=== PATIENT | female | born 2000 | race Hispanic/Latino ===

== ENCOUNTER 2022-08-06 20:14 | Day surgery (SDC) | payer OTHER ==
[2022-08-06] MEDS ORDERED: hydrALAZINE 20 MG/ML VIAL SLOW IVP PRN (21:21)
[2022-08-06 21:54] VITALS: BMI 33.3
== END 2022-08-06 21:45 | disposition home or self-care (01) ==
LOC: CSHLD/OP 20:14
PROVIDERS: ATTEND Obstetrics & Gynecology
DX: O47.1 False labor at or after 37 completed weeks of gestation (principal); Z3A.39 39 weeks gestation of pregnancy; Z79.899 Other long term (current) drug therapy
CPT/HCPCS: 99282

== ENCOUNTER 2022-08-10 19:30 | Inpatient (IN) | payer OTHER ==
[~2022-08-10 19:30] MED LIST: Bupivacaine 0.25% HCL 30 ML VIAL ONE
[2022-08-10] MEDS ORDERED: hydrALAZINE 20 MG/ML VIAL SLOW IVP PRN (20:34)
[2022-08-10] MEDS ORDERED: Methylergonovine 0.2 MG/ML VIAL IM PRN (20:34)
[2022-08-10] MEDS ORDERED: Butorphanol Tartrate 1 MG/ML VIAL SLOW IVP PRN (20:34)
[2022-08-10] MEDS ORDERED: Ibuprofen 800 MG TAB PO PRN (20:34)
[2022-08-10] MEDS ORDERED: Diphenoxylate HCl/Atropine Tablet PO PRN ×2 (20:34)
[2022-08-10] MEDS ORDERED: Promethazine HCl 25 MG/ML VIAL IM PRN (20:34)
[2022-08-10] MEDS ORDERED: Carboprost 250 MCG/ML AMP IM PRN (20:34)
[2022-08-10] MEDS ORDERED: Lidocaine 1% (PF) 30 ML VIAL SC PRN (20:34)
[2022-08-10] MEDS ORDERED: Misoprostol 200 MCG TAB PR PRN (20:34)
[2022-08-10] MEDS ORDERED: HYDROcodone/Acetaminophen 5/325 mg Tablet PO PRN ×2 (20:34)
[2022-08-10] MEDS ORDERED: Acetaminophen 500 MG TAB PO PRN (20:34)
[2022-08-10] MEDS ORDERED: Ondansetron PF 4 MG/2 ML Vial IVP PRN (20:34)
[2022-08-10 20:49] VITALS: BMI 36.8
[2022-08-10] MEDS ORDERED: Misoprostol 100 MCG TAB VAG SCH (21:00)
[2022-08-10] MEDS ORDERED: NS w/ Oxytocin 30 units 500 ML IV SCH ×2 (21:00)
[2022-08-10] MEDS ORDERED: Lactated Ringer's 1,000 ML IV SCH (21:00)
[2022-08-10 22:39] LABS: Hemoglobin 12.4 g/dL (12.0-15.5); Mean Corpuscular HGB CONC 35.3 g/dL (32.0-36.0); Mean Corpuscular Hemoglobin 30.5 pg (27.0-33.0); Mean Corpuscular Volume 86.5 fl (81.6-98.3); Mean Platelet Volume 11.2 fl (7.4-10.4); Platelet Count 233 10x3/uL (150-450); RBC Distribution Width 13.1 % (11.5-14.5); Red Blood Cell (RBC) Count 4.06 10x6/uL (3.90-5.03); White Blood Cell (WBC) Count 13.4 10x3/uL (3.5-10.5)
[2022-08-10 23:08] LABS: HBSAg Index 0.16 S/CO (0-0.99); Hep B Surf Ag Non-Reactive S/CO (NonReactive)
[2022-08-10 23:09] LABS: Syphilis Antibody Nonreactive (Nonreactive); Syphilis Antibody Index 0.03 S/CO (<1.00 Non-Reactive)
[2022-08-10 23:27] LABS: SARS-CoV-2 NAA Rapid Test Not Detected (NotDetected)
[2022-08-11] MEDS ORDERED: Fentanyl 2 mcg/Bup 0.1% Cadd 100 ML ONE ×2 (05:09→13:26)
[2022-08-11] MEDS ORDERED: Promethazine HCl 25 MG/ML VIAL IM PRN ×2 (06:14→18:36)
[2022-08-11] MEDS ORDERED: Acetaminophen 325 MG TAB PO PRN ×2 (06:14→20:47)
[2022-08-11] MEDS ORDERED: Ondansetron PF 4 MG/2 ML Vial IVP PRN ×2 (06:14→18:36)
[2022-08-11] MEDS ORDERED: diphenhydrAMINE 50 MG/ML VIAL IVP PRN ×2 (06:14→18:36)
[2022-08-11] MEDS ORDERED: Moisturizing Cream (Eucerin) 113 GM JAR TOP PRN ×2 (06:14→18:36)
[2022-08-11] MEDS ORDERED: ePHEDrine Sulfate 50 MG/10 ML VIAL SLOW IVP PRN (06:14)
[2022-08-11] MEDS ORDERED: Naloxone HCl 0.4 mg/ml Vial IVP PRN ×4 (06:14→18:36)
[2022-08-11] MEDS ORDERED: Lactated Ringer's 500 ML IV PRN (06:14)
[2022-08-11] MEDS ORDERED: Fentanyl 2 mcg/Bupivacaine 0.1% Cassette 100 ML EPIDURAL SCH (06:15)
[2022-08-11] MEDS ORDERED: Communication Order-Pharmacy FS SCH ×2 (06:15→18:45)
[2022-08-11] MEDS ORDERED: Azithromycin 500 MG VIAL ONE (16:35)
[2022-08-11] MEDS ORDERED: CEFAZOLIN 2 GM VIAL ONE (16:35)
[2022-08-11] MEDS ORDERED: Tranexamic Acid 1,000 MG/10 ML VIAL ONE (16:59)
[2022-08-11] MEDS ORDERED: Carboprost 250 MCG/ML AMP ONE (16:59)
[2022-08-11] MEDS ORDERED: Misoprostol 200 MCG TAB ONE (16:59)
[2022-08-11] MEDS ORDERED: Methylergonovine 0.2 MG/ML VIAL ONE (17:00)
[2022-08-11] MEDS ORDERED: Phenylephrine 40 MG/NS 250 ML 250 ML ONE (17:06)
[2022-08-11] MEDS ORDERED: Fentanyl 100 MCG/2 ML VIAL ONE (17:06)
[2022-08-11] MEDS ORDERED: Lidocaine 2% MPF 10 ML AMP (For Epidural Use) ONE (17:07)
[2022-08-11] MEDS ORDERED: Bupivacaine PF 0.5% 30 ML VIAL ONE (17:07)
[2022-08-11] MEDS ORDERED: Famotidine/PF 20 mg/2ml Vial SLOW IVP PRN (17:09)
[2022-08-11] MEDS ORDERED: Bicitra 30 ML UDCUP PO PRN (17:09)
[2022-08-11] MEDS ORDERED: Azithromycin 500 MG in Sodium Chloride 0.9% 250 ML 250 ML IVPB SCH (17:15)
[2022-08-11] MEDS ORDERED: CEFAZOLIN 2 GM in Sodium Chloride 0.9% 100 ML IVPB SCH (17:15)
[2022-08-11] MEDS ORDERED: Morphine PF 10 MG/10 ML VIAL ONE (18:04)
[2022-08-11] MEDS ORDERED: Midazolam HCl 2 mg/2 ml Vial ONE (18:12)
[2022-08-11] MEDS ORDERED: Ketorolac Tromethamine 30 MG/ML VIAL ONE (18:15)
[2022-08-11] MEDS ORDERED: Meperidine HCl/PF 25 MG/ML VIAL SLOW IVP PRN (18:36)
[2022-08-11] MEDS ORDERED: Fentanyl 100 MCG/2 ML VIAL SLOW IVP PRN (18:36)
[2022-08-11] MEDS ORDERED: Ondansetron HCl/PF 4 MG/2 ML Vial IVP PRN (18:36)
[2022-08-11] MEDS ORDERED: Naloxone HCl 0.4 mg/ml Vial IV PRN (18:36)
[2022-08-11] MEDS ORDERED: Promethazine HCl 25 MG SUPP PR PRN (18:36)
[2022-08-11] MEDS ORDERED: Lanolin Ointment 7 GM TUBE TOP PRN (20:47)
[2022-08-11] MEDS ORDERED: Boostrix 0.5 ML (Tdap) VIAL (>/=7 yrs of age) IM ONE (20:47)
[2022-08-11] MEDS ORDERED: diphenhydrAMINE 25 MG CAP PO PRN (20:47)
[2022-08-11] MEDS ORDERED: Simethicone Chewable 80 MG TAB PO PRN (20:47)
[2022-08-11] MEDS ORDERED: hydrALAZINE 20 MG/ML VIAL SLOW IVP PRN (20:47)
[2022-08-11] MEDS ORDERED: Bisacodyl 10 MG SUPP PR PRN (20:47)
[2022-08-12] MEDS: Ketorolac Tromethamine 30 MG/ML VIAL IVP SCH ×4 (01:05→18:43)
[2022-08-12] MEDS: Docusate 100 MG CAP PO SCH ×3 (03:36→21:26)
[2022-08-12] MEDS: Ampicillin/Sulbactam 3 GM in Sodium Chloride 0.9% 100 ML IVPB SCH ×3 (05:26→18:43)
[2022-08-12 06:03] LABS: Hemoglobin 10.6 g/dL (12.0-15.5); Mean Corpuscular HGB CONC 34.9 g/dL (32.0-36.0); Mean Corpuscular Hemoglobin 30.8 pg (27.0-33.0); Mean Corpuscular Volume 88.4 fl (81.6-98.3); Mean Platelet Volume 10.6 fl (7.4-10.4); Platelet Count 209 10x3/uL (150-450); RBC Distribution Width 13.2 % (11.5-14.5); Red Blood Cell (RBC) Count 3.44 10x6/uL (3.90-5.03)
[2022-08-12] MEDS: Prenatal Vitamin 1 TAB PO SCH (09:02)
[2022-08-12] MEDS ORDERED: Phytonadione Neonatal 1 MG/0.5 ML AMP ONE (16:34)
[2022-08-12] MEDS: HYDROcodone/Acetaminophen 5/325 mg Tablet PO PRN ×2 (17:05→23:17)
[2022-08-13] MEDS: Ampicillin/Sulbactam 3 GM in Sodium Chloride 0.9% 100 ML IVPB SCH ×5 (00:17→23:45)
[2022-08-13] MEDS: Ibuprofen 800 MG TAB PO SCH ×4 (00:21→23:45)
[2022-08-13] MEDS ORDERED: Ibuprofen 800 MG TAB PO PRN (00:30)
[2022-08-13] MEDS: Docusate 100 MG CAP PO SCH ×2 (08:15→22:38)
[2022-08-13] MEDS: Prenatal Vitamin 1 TAB PO SCH (08:15)
[2022-08-13] MEDS: HYDROcodone/Acetaminophen 5/325 mg Tablet PO PRN ×3 (12:48→23:45)
[2022-08-14 04:23] VITALS: TEMP 97.7
[2022-08-14] MEDS: Ampicillin/Sulbactam 3 GM in Sodium Chloride 0.9% 100 ML IVPB SCH (05:57)
[2022-08-14 07:51] VITALS: BP 125/75
[2022-08-14] MEDS: Prenatal Vitamin 1 TAB PO SCH (08:05)
[2022-08-14] MEDS: Docusate 100 MG CAP PO SCH (08:05)
[2022-08-14] MEDS: HYDROcodone/Acetaminophen 5/325 mg Tablet PO PRN (08:06)
[2022-08-14] MEDS: Ibuprofen 800 MG TAB PO SCH (08:06)
== END 2022-08-14 11:45 | disposition home or self-care (01) | DRG 787 ==
LOC: CSHLD 19:52 → CSHPP 08-11 20:50
PROVIDERS: ADMIT Obstetrics & Gynecology; ATTEND Obstetrics & Gynecology
PROC: 10D00Z1 Extraction of Products of Conception, Low, Open Approach (ICD-10-PCS; principal; 2022-08-11)
DX: O32.8XX0 Maternal care for other malpresentation of fetus, not applicable or unspecified (principal); O86.4 Pyrexia of unknown origin following delivery; Z37.0 Single live birth; Z3A.40 40 weeks gestation of pregnancy; Z20.822 Contact with and (suspected) exposure to COVID-19; O62.1 Secondary uterine inertia; O32.4XX0 Maternal care for high head at term, not applicable or unspecified; O76 Abnormality in fetal heart rate and rhythm complicating labor and delivery; E66.9 Obesity, unspecified; O99.214 Obesity complicating childbirth
CPT/HCPCS: 36415; 51702; 85027; 86780; 86850; 86900; 86901; 87340; J0295; J1885; J2250; J2274; J2590; J3010; J3490; S0020; U0002